=== PATIENT | female | born 1980 | race Caucasian/White ===

== ENCOUNTER 2016-10-11 21:58 | Emergency (ER) | payer OTHER ==
[~2016-10-11 21:58] MED LIST: CYCLOBENZAPRINE5 M1 PO; NO HOME MEDICATION XX; NORCO 5-325 TA1 EACH PO; [UNRECOGNIZED DRUG - REMARK] PO
[2016-10-11] MEDS ORDERED: NEXPLANON68 M1 SQ (22:17)
[2017-03-02] MEDS ORDERED: MIGRAINE MED (18:57)
== END 2016-10-12 00:59 ==
LOC: EDMED 21:58
PROC: 2W3RX1Z Immobilization of Left Lower Leg using Splint (ICD-10-PCS; principal; 2016-10-12)
DX: S93.492A Sprain of other ligament of left ankle, initial encounter (principal); E66.9 Obesity, unspecified; X50.1XXA Overexertion from prolonged static or awkward postures, initial encounter; Y93.44 Activity, trampolining; Y92.830 Public park as the place of occurrence of the external cause; Y99.8 Other external cause status